=== PATIENT | male | born 1960 | race Caucasian/White ===

== ENCOUNTER → 2016-12-23 | Outpatient (CLI) | payer OTHER ==
[~2016-12-23] MED LIST: ATOR-24 PO; HYDR-5688 PO; MELO15TA4 PO; METO25TA56 PO; NAPR500T3; ULT/50 PO
--- NOTE | 2016-12-23 10:57 | DIAGNOSTIC IMAGING REPORT ---
MRI LEFT KNEE NO CONTRAST CLINICAL HISTORY: Left knee pain status post trauma. COMPARISON STUDY: Conventional radiographic study dated 09/22/2013 FINDINGS: Imaging was performed in sagittal, coronal, and axial planes. There are no areas of marrow edema to indicate occult fracture or bone bruise. There is a minimal joint effusion. The quadriceps and patellar tendons appear intact. Anterior and posterior cruciate ligaments appear intact. The medial and lateral collateral ligaments appear intact. The patellar retinacular structures appear intact. No tears a lateral meniscus are visualized. There is a complex primarily horizontal tear involving the posterior horn the medial meniscus. IMPRESSION: Complex tear involving the posterior horn of the medial meniscus. Electronically signed by: Larry Foote M.D. 12/23/2016 10:56 AM Dictated Date/Time: 12/23/2016 10:51 AM
== END | disposition home or self-care (01) ==
LOC: C.MRIBC 10:00
PROVIDERS: ATTEND Orthopaedic Surgery
DX: S83.242A Other tear of medial meniscus, current injury, left knee, initial encounter (principal); X58.XXXA Exposure to other specified factors, initial encounter

== ENCOUNTER → 2016-12-27 | Outpatient (CLI) | payer OTHER ==
[2016-12-27 13:07] LABS: BASO % 0.2 %; BASO ABS # 0.01 K/uL (0-0.2); COMPLETE YES; EOS % 5.3 %; HEMATOCRIT 48.2 % (42-52); IG% 0.2 %; LYMPH % 41.5 %; LYMPH ABS # 2.36 K/uL (1.2-3.4); MEAN CELL VOLUME 86.7 fL (80-100); MEAN CORPUSCULAR HEMOGLOBIN 29.5 pg (25-34); MEAN PLATELET VOLUME 11.1 fL (7.4-10.4); MONO % 5.6 %; NEUT % 47.2 %; PLATELET COUNT 212 K/uL (130-400); RED BLOOD COUNT 5.56 M/uL (4.7-6.1); WHITE BLOOD COUNT 5.69 K/uL (4.8-10.8)
[2016-12-27 13:40] LABS: POTASSIUM 4.5 mmol/L (3.5-5.1)
== END | disposition home or self-care (01) ==
LOC: C.LAB 11:53
DX: Z01.810 Encounter for preprocedural cardiovascular examination (principal); Z01.812 Encounter for preprocedural laboratory examination; S83.242A Other tear of medial meniscus, current injury, left knee, initial encounter; X58.XXXA Exposure to other specified factors, initial encounter

== ENCOUNTER → 2016-12-31 | Day surgery (SDC) | payer OTHER ==
[2016-12-27 11:43] VITALS: Ht 177.8 cm; Wt 95.5 kg
[~2016-12-31] VITALS: Ht 177.8 cm; Wt 95.5 kg
[~2016-12-31] MED LIST changes: +ATROPINE SULFATE 0.1 MG/ML 5ML SYR IV PRN; +BUPIVACAINE 0.5 % 5 MG/1 ML MPF 30ML VIAL ONE; +CEFAZOLIN 2000 MG/60 ML D5W IV SCH; +CEFAZOLIN IV 2,000 MG/60 ML D5W IV ONE; +DEXAMETHASONE SOD INJ 4 MG/ML VIAL ONE; +EpHEDrine SULFATE INJ 50 MG/ML AMP IV PRN; +EpINEphrine INJ 1MG/ML AMP 1 MG/ML AMP ONE; +FENTANYL CITRATE INJ 50 MCG/1 ML 2 ML VIAL IV PRN; +FENTANYL CITRATE INJ 50 MCG/1 ML 2 ML VIAL ONE; +FLUMAZENIL 0.1 MG/1 ML 10 ML VIAL IV PRN; +HYDROmorphone INJ 2 MG/ML SYR/VIAL IV PRN; +KETOROLAC TROMETHAMINE 30 MG/ML VIAL ONE; +LABETALOL HCL IV 5 MG/ML 20ML IV PRN; +LACTATED RINGER'S 1000ML 1,000 ML IV SCH; +LIDOCAINE HCL 2% 2 ML VIAL (20MG/ML) ONE; +MEPERIDINE HCL 25 MG/ML CARP IV PRN; +MIDAZOLAM HCL 1 MG/ML 2ML VIAL ONE; +NALOXONE HCL 0.4 MG/1 ML VIAL/CARP IV PRN; -NAPR500T3; +ONDANSETRON INJ 2 MG/ML 2 ML VIAL IV PRN; +ONDANSETRON INJ 2 MG/ML 2 ML VIAL ONE; +PHENYLEPHRINE 100MCG/ML 5ML SYR IV PRN; +PROPOFOL IV EMULSION 10 MG/ML 20 ML VIAL IV ONE; +ROPIVACAINE 0.5% 5 MG/ML 30 ML VIAL ONE; +SODIUM CHLORIDE 0.9% 1000ML 1,000 ML IV SCH; +TRAMADOL HCL 50 MG TAB ONE; +TRAMADOL HCL 50 MG TAB PO PRN
--- NOTE | 2016-12-31 10:21 | History & Physical Bridge - SC ---
H&P Re-Evaluation Bridge Note: I have examined the patient, reviewed the History & Physical and in the interval since the performance of the History & Physical I have noted the following changes of clinical significance: No changes noted
--- NOTE | 2016-12-31 12:12 | [facility] Post Operative Brief Note ---
Immediate Operative Summary Operative Date Dec 31, 2016. Pre-Operative Diagnosis Left knee positive Juliet, medial joint line pain Post-Operative Diagnosis Same as pre-op Procedure(s) Performed Left Knee Arthroscopy, Partial Medial Meniscectomy Surgeon Dr. Tena Link Assembler Surgeon(s) Benji BENITO Estimated Blood Loss ZERO Findings ABOVE Specimens None Anesthesia LMA Complication(s) None Disposition Recovery Room / PACU
--- NOTE | 2016-12-31 12:22 | Discharge Instructions-SurgCtr ---
Discharge Instructions Date of Service Dec 31, 2016. Visit Reason for Visit: Left Knee Medial Meniscus Tear Discharge Discharge Diagnosis / Problem: SAME ABOVE Discharge Goals Goal(s): Decrease discomfort, Improve function Activity Recommendations Activity Limitations: as noted below Lifting Limitations: gradually increase as tolerated Exercise/Sports Limitations: gradually increase as tolerated Shower/Bathe: tomorrow Driving or Machine Use: resume 1 day after discharge Anesthesia . Post Anesthesia Instructions: If you have had General Anesthesia or IV Sedation: * Do not drive today. * Resume driving when surgeon permits. * Do not make important decisions or sign legal documents today. * Call surgeon for: 1. Temperature elevations greater than 101 degrees F. 2. Uncontrollable pain. 3. Excessive bleeding. 4. Persistent nausea and vomiting. 5. Medication intolerance (nausea, vomiting or rash). * For nausea and vomiting use only clear liquids such as: tea, soda, bouillon until nausea subsides, then gradually increase diet as tolerated. * If you have any concerns or questions, call your surgeon's office. If physician is unavailable and it is an emergency, call 911 or go to the nearest emergency room. . Instructions / Follow-Up Instructions / Follow-Up MEDICATIONS: * Resume previous medications unless instructed otherwise by your surgeon. * Always take pain medication on a full stomach or with food to avoid upset stomach. * Do not drink alcohol or drive while taking narcotics. * Ibuprofen or Tylenol may be taken if narcotic not needed. SPECIAL CARE INSTRUCTIONS: __ None _X_ Keep extremity elevated and iced x 48 hours; apply ice 20-30 minutes 8-10 times/day. May remove at night. _X_ Crutches _X_ May discard when able __ Brace/Post-op shoe __ 24 hrs/day __ Remove at night _X_ Dressing __ Maintain until seen in office, may shower with plastic over site _X_ Remove dressings in 24-48 hours and then may shower _X_ Cover incisions with band-aids after showering __ Do not remove steri-strips Call physician if chills or temperature rises above 102 degrees or pain unrelieved by prescribed pain medications. Office [phone] Diet Recommendations Home Diet: no limitations Fluid Restriction: None Procedures Procedures Performed: Left Knee Arthroscopy, Partial Medial Meniscectomy Pending Studies Studies pending at discharge: no Work Instructions Return To Work: after follow-up Medical Emergencies . Who to Call and When: Medical Emergencies: If at any time you feel your situation is an emergency, please call 911 immediately. . Non-Emergent Contact Non-Emergency issues call your: Primary Care Provider Call Non-Emergent contact if: you have a fever, temperature is above 101.5 . . "Provider Documentation" section prepared by Henrik Aaron. .
--- NOTE | 2016-12-31 12:41 | Anesthesia Progress Nt - [facility] ---
Anesthesia Post Op Note Date & Time Dec 31, 2016 at 12:41 Vital Signs Pain Intensity: 0 Vital Signs Past 12 Hours Date Time Temp Pulse Resp B/P (MAP) Pulse Ox O2 Delivery O2 Flow Rate FiO2 12/31/16 12:25 71 11 93 12/31/16 12:25 71 11 12/31/16 12:22 36.2 75 12 139/100 96 Mask 12/31/16 12:22 139/100 12/31/16 10:03 36.6 63 18 156/93 (114) 96 Room Air Notes Mental Status: alert / awake / arousable, participated in evaluation Pt Amnestic to Procedure: Yes Nausea / Vomiting: adequately controlled Pain: adequately controlled Airway Patency, RR, SpO2: stable & adequate BP & HR: stable & adequate Hydration State: stable & adequate Anesthetic Complications: no major complications apparent
[2016-12-31 13:13] VITALS: TEMP 36.5
[2016-12-31 13:50] VITALS: BP 127/83; PULSE 55; O2SAT 97
== END | disposition home or self-care (01) ==
LOC: X.SURG 09:50
PROVIDERS: ATTEND Orthopaedic Surgery
DX: M23.222 Derangement of posterior horn of medial meniscus due to old tear or injury, left knee (principal); I10 Essential (primary) hypertension

== ENCOUNTER → 2017-05-21 | Outpatient (CLI) | payer OTHER ==
[~2017-05-21] MED LIST changes: -ATROPINE SULFATE 0.1 MG/ML 5ML SYR IV PRN; -BUPIVACAINE 0.5 % 5 MG/1 ML MPF 30ML VIAL ONE; -CEFAZOLIN 2000 MG/60 ML D5W IV SCH; -CEFAZOLIN IV 2,000 MG/60 ML D5W IV ONE; -DEXAMETHASONE SOD INJ 4 MG/ML VIAL ONE; -EpHEDrine SULFATE INJ 50 MG/ML AMP IV PRN; -EpINEphrine INJ 1MG/ML AMP 1 MG/ML AMP ONE; -FENTANYL CITRATE INJ 50 MCG/1 ML 2 ML VIAL IV PRN; -FENTANYL CITRATE INJ 50 MCG/1 ML 2 ML VIAL ONE; -FLUMAZENIL 0.1 MG/1 ML 10 ML VIAL IV PRN; -HYDROmorphone INJ 2 MG/ML SYR/VIAL IV PRN; -KETOROLAC TROMETHAMINE 30 MG/ML VIAL ONE; -LABETALOL HCL IV 5 MG/ML 20ML IV PRN; -LACTATED RINGER'S 1000ML 1,000 ML IV SCH; -LIDOCAINE HCL 2% 2 ML VIAL (20MG/ML) ONE; -MEPERIDINE HCL 25 MG/ML CARP IV PRN; -MIDAZOLAM HCL 1 MG/ML 2ML VIAL ONE; -NALOXONE HCL 0.4 MG/1 ML VIAL/CARP IV PRN; -ONDANSETRON INJ 2 MG/ML 2 ML VIAL IV PRN; -ONDANSETRON INJ 2 MG/ML 2 ML VIAL ONE; -PHENYLEPHRINE 100MCG/ML 5ML SYR IV PRN; -PROPOFOL IV EMULSION 10 MG/ML 20 ML VIAL IV ONE; -ROPIVACAINE 0.5% 5 MG/ML 30 ML VIAL ONE; -SODIUM CHLORIDE 0.9% 1000ML 1,000 ML IV SCH; -TRAMADOL HCL 50 MG TAB ONE; -TRAMADOL HCL 50 MG TAB PO PRN
[2017-05-21 13:53] LABS: ALT/SGPT 33 U/L (12-78); AST/SGOT 19 U/L (15-37); BLOOD UREA NITROGEN 15 mg/dl (7-18); BUN/CREATININE RATIO 13.2 (10-20); CALCIUM 8.4 mg/dl (8.5-10.1); CARBON DIOXIDE 29 mmol/L (21-32); CHLORIDE 105 mmol/L (98-107); GLUCOSE 107 mg/dl (70-99); POTASSIUM 4.3 mmol/L (3.5-5.1); SODIUM 137 mmol/L (136-145)
[2017-05-21 13:54] LABS: ESTIMATED AVERAGE GLUCOSE 120 mg/dl; HA1C FLAG Normal (Normal)
[2017-05-21 13:57] LABS: CHOLESTEROL 162 mg/dl (0-200); CHOLESTEROL/HDL RATIO 3.6; HDL CHOLESTEROL 45 mg/dl; LDL CHOLESTEROL CALCULATED 95 mg/dl; TRIGLYCERIDES 111 mg/dl (0-150); VERY LOW DENSITY LIPOPROT CALC 22 mg/dl
== END | disposition home or self-care (01) ==
LOC: C.LABBC 11:01
DX: I10 Essential (primary) hypertension (principal); E78.5 Hyperlipidemia, unspecified; E29.1 Testicular hypofunction

== ENCOUNTER → 2018-01-27 | Outpatient (CLI) | payer OTHER ==
[~2018-01-27] MED LIST changes: -HYDR-5688 PO; +MELO-84 PO; -MELO15TA4 PO
[2018-01-27 13:49] LABS: HEMOGLOBIN A1C 5.7 % (4.5-5.6)
[2018-01-27 17:02] LABS: ALT/SGPT 32 U/L (12-78); AST/SGOT 19 U/L (15-37); BLOOD UREA NITROGEN 17 mg/dl (7-18); CALCIUM 8.8 mg/dl (8.5-10.1); CARBON DIOXIDE 29 mmol/L (21-32); CHOLESTEROL 179 mg/dl (0-200); CREATININE 1.15 mg/dl (0.60-1.40); GLUCOSE 110 mg/dl (70-99); LDL CHOLESTEROL CALCULATED 114 mg/dl; POTASSIUM 4.4 mmol/L (3.5-5.1); SODIUM 139 mmol/L (136-145)
== END | disposition home or self-care (01) ==
LOC: C.LABBC 12:08
DX: E87.5 Hyperkalemia (principal); I10 Essential (primary) hypertension; E83.52 Hypercalcemia

== ENCOUNTER 2023-10-23 14:50 | Inpatient (IN) ==
[2023-10-23 16:18] LABS: Basophils # (auto) 0.01 K/uL (0.00-0.20); Basophils % (auto) 0.1 %; Hemoglobin 15.8 g/dl (14.0-18.0); Immature Granulocytes # (auto) 0.03 K/uL (0.01-0.20); Immature Granulocytes % (auto) 0.4 %; Lymphocytes # (auto) 0.78 K/uL (1.20-3.40); Lymphocytes % (auto) 10.5 %; Mean Corpuscular Hemoglobin 29.8 pg (25.0-34.0); Mean Corpuscular Hgb Conc 33.6 g/dL (32.0-36.0); Mean Corpuscular Volume 88.7 fL (80.0-100.0); Mean Platelet Volume 10.9 fL (9.4-12.4); Monocytes # (auto) 0.27 K/uL (0.11-0.59); Monocytes % (auto) 3.6 %; Neutrophils # (auto) 6.33 K/uL (1.40-6.50); Neutrophils % (auto) 85.4 %; Platelet Count 202 K/uL (130-400); RDW Coefficient of Variation 13.3 % (11.5-14.5); White Blood Count 7.42 K/ul (4.8-10.8)
[2023-10-23 16:43] LABS: Alanine Aminotransferase 28 U/L (7-52); Albumin Globulin Ratio 1.7 (0.9-2); Albumin Level 4.7 gm/dl (3.4-5.0); Alkaline Phosphatase 50 U/L (34-104); Anion Gap 5 (3-11); Aspartate Aminotransferase 18 U/L (13-39); BUN Creatinine Ratio 15.5 (10-20); Bilirubin,Total 1.1 mg/dl (0.2-1.0); Blood Urea Nitrogen 16 mg/dl (6-23); Calcium 9.4 mg/dl (8.6-10.3); Carbon Dioxide 29 mmol/L (21-32); Chloride 105 mmol/L (98-107); Est GFR (African American) 87.3 ml/min; Est GFR (Non-African American) 75.3 ml/min; Globulin 2.7 gm/dl (2.5-4.0); Glucose 141 mg/dl (70-99(Fasting)); Potassium 4.6 mmol/L (3.5-5.1); Sodium 139 mmol/L (136-145); Total Protein 7.4 gm/dl (6.0-8.3)
[2023-10-23 16:55] LABS: Influenza A virus by PCR Negative (Neg); Influenza B virus by PCR Negative (Neg); RSV by PCR Negative (Neg); SARS CoV2 RNA(COVID-19) Ceph NEGATIVE (Negative)
--- NOTE | 2023-10-23 18:17 | Emergency Department Note ---
History of Present Illness General Chief complaint: Illness Stated complaint: PAIN, DIZZINESS, VOMIT 24 HRS, LETHAGIC, BALANCE Time Seen by Provider: 10/23/23 17:56 Source: patient, family ( who is at the bedside), RN notes reviewed and old records reviewed (03/20/22-[facility] outpatient note) Mode of arrival: ambulatory Limitations: no limitations History of Present Illness This patient is a 64-year-old male who comes in after feeling dizzy. Yesterday he woke up to have ringing in his ear but it went away throughout the day he did some strenuous work throughout the day and went home he had a couple cocktails like he typically does he drank some yogurt around 9:00 in the evening and then woke up at between 130 and 2 and was nauseated dizzy and vomiting. No diarrhea. No blood or melena. He feels like his head is spinning. He says he feels well and less he moves and then he feels very dizzy his balance is off when he gets up. No headache minimal abdominal discomfort no chest pain or shortness of breath no difficulty speaking or swallowing .no focal numbness or weakness . no bloody or coffeeground emesis. No history of similar. Home Medications Medication Instructions Recorded Confirmed Type hydrocortisone 2.5 % topical cream 1 applic MA BID PRN Hemorrhoids 09/09/22 10/23/23 History with perineal applicator (Procto-Med ) tadalafil 5 mg tablet 5 mg PO DIRECTED PRN Sexual 09/09/22 10/23/23 History Activity atorvastatin 40 mg tablet 40 mg PO DAILY 10/23/23 10/23/23 History diclofenac sodium 75 mg 75 mg PO BID 10/23/23 10/23/23 History tablet,delayed release metoprolol succinate 25 mg 25 mg PO DAILY 10/23/23 10/23/23 History tablet,extended release 24 hr Allergies Allergy/AdvReac Type Severity Reaction Status Date / Time pollen extracts Allergy Intermediate CONGESTION Verified 10/23/23 19:40 Penicillins Allergy Unknown UNKNOWN Verified 10/23/23 19:40 WITH INJECTION A CHILD Past Med/Surg History Medical History (Updated 10/24/23 @ 00:51 by Edilberto Duarte MD) Hemorrhoids CURRENTLY-DUE TO CONSTIPATION Hyperlipidemia Hypertension Surgical History History of arthroscopy R/L KNEES History of colonoscopy Family History Aunt Family history of diabetes mellitus Social History Smoking Status: Unknown if ever smoked Second Hand Exposure: No; Do You Dip or Chew Tobacco: No; Hx Alcohol Use: Yes Alcohol type: hard liquor Hx Substance Use: No Preferred Language: Kazakh Communication Ability: Effective Sewer Line Photo Inspector Required: No Beliefs That Will Affect Care: None Current Living Situation: Spouse Other Information That Helps Us Care for You: No Feels Safe at Home: Yes Safety Concerns: Feels Safe At This Time Assistive Devices: Glasses Assistive Devices Comment: reading glasses Review of Systems A total of 10 systems reviewed and were otherwise negative Physical Exam Vital Signs Vital Signs - 24 hr 10/23/23 14:54 10/23/23 17:11 10/23/23 17:15 Temperature 36.4 C L Temperature Source Temporal Artery Scan Pulse Rate 67 94 H 75 Pulse Rate from SpO2 Sensor 90 Respiratory Rate 18 19 Respiratory Effort / Characteristics Non-Labored Spontaneous Respiratory Depth Normal Respiratory Pattern Regular Blood Pressure 174/91 H Blood Pressure Mean 118 Pulse Oximetry 94 95 Sepsis Recent Fever Within 48 Hours No Sepsis New/Unexplained Change in Mental Status N/A Sepsis Action Taken by Nursing No Action Required 10/23/23 17:20 10/23/23 17:30 10/23/23 17:30 Temperature Temperature Source Pulse Rate 70 68 Pulse Rate from SpO2 Sensor 69 68 Respiratory Rate 13 15 Respiratory Effort / Characteristics Respiratory Depth Respiratory Pattern Blood Pressure 142/81 H Blood Pressure Mean 111 Pulse Oximetry 94 96 Sepsis Recent Fever Within 48 Hours Sepsis New/Unexplained Change in Mental Status Sepsis Action Taken by Nursing 10/23/23 17:40 10/23/23 19:00 10/23/23 19:02 Temperature Temperature Source Pulse Rate 66 78 80 Pulse Rate from SpO2 Sensor 66 80 Respiratory Rate 17 16 Respiratory Effort / Characteristics Respiratory Depth Respiratory Pattern Blood Pressure 156/95 H 149/87 H Blood Pressure Mean 113 107 Pulse Oximetry 96 95 96 Sepsis Recent Fever Within 48 Hours Sepsis New/Unexplained Change in Mental Status Sepsis Action Taken by Nursing 10/23/23 19:50 10/23/23 20:00 10/23/23 20:29 Temperature Temperature Source Pulse Rate 72 79 76 Pulse Rate from SpO2 Sensor 71 79 78 Respiratory Rate 13 17 16 Respiratory Effort / Characteristics Respiratory Depth Respiratory Pattern Blood Pressure Blood Pressure Mean Pulse Oximetry 92 96 94 Sepsis Recent Fever Within 48 Hours Sepsis New/Unexplained Change in Mental Status Sepsis Action Taken by Nursing 10/23/23 20:30 Temperature Temperature Source Pulse Rate Pulse Rate from SpO2 Sensor Respiratory Rate Respiratory Effort / Characteristics Respiratory Depth Respiratory Pattern Blood Pressure 148/73 H Blood Pressure Mean 86 Pulse Oximetry Sepsis Recent Fever Within 48 Hours Sepsis New/Unexplained Change in Mental Status Sepsis Action Taken by Nursing General: Well developed well nourished [id number] middle-age male who appears in no acute distress, breathing comfortably on room air. Normal speech HEENT: Normal cephalic atraumatic. Pupils are equal round and reactive to light. Extraocular movements are intact. Oropharynx is pink with moist mucous membranes. No swelling of the mouth lips or tongue. Normal tympanic membranes bilaterally. Neck: Supple with a midline trachea. No meningeal signs or stiffness, no JVD or bruits. No Stridor. Chest: Clear to auscultation bilaterally. No wheezes or rhonchi. No increased work of breathing. Heart: Regular rate and rhythm without murmurs or gallops. Abdomen: Soft nontender, nondistended without rebound guarding or rigidity. Extremities: No cyanosis clubbing or edema. No calf tenderness or assymetry Spine/Back. Non tender to palpation. No CVA tenderness Skin: Good turgor without rashes. Neurologic exam: Cranial nerves two through 12 are intact. Motor and sensation are intact and symmetrical throughout. No tremor. Finger-nose intact. Normal [id number]. Course Administered Medications Lactated Ringer's (Lr) 1,000 mls @ 80 mls/hr IV .[id number] IBIS Stop: 10/24/23 10:29 Last Admin: 10/23/23 22:48 Dose: 80 mls/hr Documented By: AAW Meclizine HCl (Meclizine Hcl 25 Mg Tab) 25 mg PO Q6H PRN PRN Reason: Dizziness or Vertigo Stop: 11/22/23 23:24 Last Admin: 10/23/23 23:59 Dose: 25 mg Documented By: AMM Ondansetron HCl (Ondansetron Inj 2 Mg/Ml 2 Ml Vial) 4 mg IV Q6H PRN PRN Reason: Nausea Stop: 11/22/23 23:24 Last Admin: 10/23/23 23:59 Dose: 4 mg Documented By: JENNIFER Discontinued Medications Sodium Chloride (Nss) 1,000 mls @ 999 mls/hr IV .Q1H1M ONE Stop: 10/23/23 19:08 Last Infusion: 10/23/23 19:27 Dose: Infused Documented By: Admin: 10/23/23 18:26 Dose: 999 mls/hr Documented By: GABBY Sodium Chloride (Nss) 1,000 mls @ 999 mls/hr IV .Q1H1M ONE Stop: 10/23/23 20:19 Last Infusion: 10/23/23 20:28 Dose: Infused Documented By: Admin: 10/23/23 19:27 Dose: 999 mls/hr Documented By: PAM Meclizine HCl (Meclizine Hcl 25 Mg Tab) 25 mg PO NOW STA Stop: 10/23/23 18:09 Last Admin: 10/23/23 18:25 Dose: 25 mg Documented By: GABBY Ondansetron HCl (Ondansetron Inj 2 Mg/Ml 2 Ml Vial) 4 mg IV NOW STA Stop: 10/23/23 18:09 Last Admin: 10/23/23 18:26 Dose: 4 mg Documented By: GABBY Medical Decision Making Differential Diagnosis Vertigo, Mnire's disease, tinnitus, cardiac disease, arrhythmia, dehydration, electrolyte or metabolic abnormality, neurologic disease, infection, anemia Medical Records Attestation: I reviewed the patient's medical records. Home Medications Current Medication List: was personally reviewed by me Laboratory Data Attestation: I reviewed the patient's lab results. 10/23/23 15:53 10/23/23 15:53 Lab Results 10/23/23 10/23/23 Range/Units 15:53 15:56 WBC 7.42 (4.8-10.8) K/ul RBC 5.30 (4.70-6.10) M/uL Hgb 15.8 (14.0-18.0) g/dl Hct 47.0 (42.0-52.0) % MCV 88.7 (80.0-100.0) fL MCH 29.8 (25.0-34.0) pg MCHC 33.6 (32.0-36.0) g/dL RDW Std Deviation 43.0 (36.4-46.3) fL RDW Coeff of Dangelo 13.3 (11.5-14.5) % Plt Count 202 (130-400) K/uL MPV 10.9 (9.4-12.4) fL Immature Gran % (Auto) 0.4 % Neut % (Auto) 85.4 % Lymph % (Auto) 10.5 % Faulk % (Auto) 3.6 % Eos % (Auto) 0.0 % Baso % (Auto) 0.1 % Neut # (Auto) 6.33 (1.40-6.50) K/uL Lymph # (Auto) 0.78 L (1.20-3.40) K/uL Faulk # (Auto) 0.27 (0.11-0.59) K/uL Eos # (Auto) 0.00 (0.00-0.50) K/uL Baso # (Auto) 0.01 (0.00-0.20) K/uL Immature Gran # (Auto) 0.03 (0.01-0.20) K/uL Sodium 139 (136-145) mmol/L Potassium 4.6 (3.5-5.1) mmol/L Chloride 105 (98-107) mmol/L Carbon Dioxide 29 (21-32) mmol/L Anion Gap 5 (3-11) BUN 16 (6-23) mg/dl Creatinine 1.03 (0.6-1.4) mg/dl Est Cr Clr Drug Dosing Not Reportable Est GFR ( Amer) 87.3 ml/min Est GFR (Non-Af Amer) 75.3 ml/min BUN/Creatinine Ratio 15.5 (10-20) Glucose 141 H (70-99(Fasting)) mg/dl Calcium 9.4 (8.6-10.3) mg/dl Total Bilirubin 1.1 H (0.2-1.0) mg/dl AST 18 (13-39) U/L ALT 28 (7-52) U/L Alkaline Phosphatase 50 (34-104) U/L Troponin I High Sens 4.1 (0-20) pg/ml Total Protein 7.4 (6.0-8.3) gm/dl Albumin 4.7 (3.4-5.0) gm/dl Globulin 2.7 (2.5-4.0) gm/dl Albumin/Globulin Ratio 1.7 (0.9-2) Ethyl Alcohol mg/dL < 10.0 (<10.0) mg/dl SARS-CoV-2 (PCR) NEGATIVE (Negative) Influenza Type A (PCR) Negative (Neg) Influenza Type B (PCR) Negative (Neg) RSV (RT-PCR) Negative (Neg) Imaging Data Attestation: I personally reviewed and interpreted this imaging study as follows: My Impression: CAT scan of the headno hemorrhage or mass effect seen Radiologist's Impression: Head CT 10/23/23 18:10 Exam(s): CT HEAD Without Contrast EXAM: CT Head Without Intravenous Contrast CLINICAL HISTORY: Reason for exam: dizziness. TECHNIQUE: Axial computed tomography images of the head/brain without intravenous contrast. CTDI is 36.05 mGy and DLP is 625.8 mGy-cm. Automated exposure control was utilized for the study. A dose lowering technique was utilized adhering to the principles of ALARA. COMPARISON: No relevant prior studies available. FINDINGS: Brain: Unremarkable. No hemorrhage. No significant white matter disease. No edema. Garcia-white matter differentiation maintained. Ventricles: Unremarkable. No hydrocephalus. Bones/joints: Unremarkable. No acute fracture. Soft tissues: Unremarkable. Sinuses: Unremarkable as visualized. No acute sinusitis. Mastoid air cells: Unremarkable as visualized. No mastoid effusion. IMPRESSION: No acute intracranial process. Electronically signed by: Raudel Vazquez M.D. 10/23/23 19:49 PM Brain MRI 10/23/23 21:12 Exam(s): MRI HEAD W/WO Contrast IV Amt: 9.5ml gadavist EXAM: MR Head Without and With Intravenous Contrast CLINICAL HISTORY: Reason for exam: vertigo. TECHNIQUE: Magnetic resonance images of the head/brain without and with intravenous contrast in multiple planes. CONTRAST: Patient received 9.5ml gadavist of IV contrast COMPARISON: CT head 10/23/23 FINDINGS: Brain: No diffusion restriction to suggest acute cerebral ischemia. No acute intracranial hemorrhage. No mass-effect or midline shift. Proximal intracranial flow voids appear normal. No intracranial mass or abnormal enhancement. Single focus of FLAIR signal hyperintensity in the deep cerebral white matter of the left cerebral hemisphere, nonspecific, but most likely representing mild chronic small vessel ischemic disease. Parenchymal volume is normal for age. Ventricles: Unremarkable. No ventriculomegaly. Bones/joints: Unremarkable. No acute fracture. Sinuses: Small mucous retention cysts in the left maxillary sinus and right sphenoid sinus. Paranasal sinuses otherwise clear. No acute sinusitis. Mastoid air cells: Unremarkable as visualized. No mastoid effusion. Orbits: Unremarkable as visualized. IMPRESSION: No acute findings in the head/brain. Electronically signed by: Raudel Vazquez M.D. 10/23/23 22:50 PM ECG Data Attestation: I personally reviewed and interpreted this ECG as follows: Indication: + nausea, + vomiting and + other (Dizziness) Rate (beats per minute): 67 Rhythm: + normal sinus ECG Intervals/blocks: + Normal QRS, + Normal QT and + Normal MA ECG [place]: + Normal ECG ST segments: + Normal ST segments ECG Findings: no PACs or no PVCs Comparison ECG Date: from (12/27/2016) Change: no significant change MDM Narrative This patient is a six 4-year-old male who comes in after feeling dizzy. He has a normal neurologic exam he has normal finger to toes normal [id number] he has no tremor. He has no headache. He is afebrile. Blood work was obtained. He is no white count or fevers suggest infection no significant anemia. Blood sugar is mildly elevated at 140 but no other electrolyte or metabolic abnormalities. EKG does not suggest acute coronary syndrome or arrhythmia. I did order 1 L IV normal saline bolus as well as Zofran 4 mg IV and meclizine 25 mg p.o. as well as add a troponin and a CAT scan of his head. Troponin was normal and his symptoms would be atypical for cardiac disease. I did give him a second 1 L normal saline bolus. His CAT scan of his head is unremarkable. He says he does feel better however when he tried to get him up he was still very dizzy and unable to safely ambulate in light of his persistent vertiginous symptoms ,I did order MRI of the brain with and without. I also consulted Dr. Ontiveros and discussed the case with him for admission/observation as I do not think he can safely go home and will need further workup. In the meantime, his brain MRI did come back as negative. He will be admitted/observed for further inpatient treatment and evaluation. Continuous cardiac monitoring: Orders placed in EMR for continuous development coach call upon my evaluation patient will be normal sinus rhythm rate 65 Impression & Plan Dizziness, Lab test negative for COVID-19 virus, Acute dehydration, Nausea & vomiting, Ambulatory dysfunction Discharge Plan Visit Data Chief Complaint: Illness Stated Complaint: PAIN, DIZZINESS, VOMIT 24 HRS, LETHAGIC, BALANCE ED Provider: Edilberto Duarte Discharge Problem: Dizziness, Lab test negative for COVID-19 virus, Acute dehydration, Nausea & vomiting, Ambulatory dysfunction Patient Disposition: Admitted As Inpatient Discharge Instructions Interventions: ED Discharge Assessment Last Done: 10/23/23 22:58 Discharge Problem: Nausea & vomiting Qualifiers: Vomiting type: unspecified Qualified Code(s): R11.2 - Nausea with vomiting, unspecified
[2023-10-23] MEDS: MECLIZINE HCL 25 MG TAB PO STA (18:25)
[2023-10-23] MEDS: SODIUM CHLORIDE 0.9% 1,000 ML IV ONE ×2 (18:26→19:27)
[2023-10-23] MEDS: ONDANSETRON INJ 2 MG/ML 2 ML VIAL IV STA (18:26)
[2023-10-23 18:40] LABS: Troponin I High Sensitivity 4.1 pg/ml (0-20)
--- NOTE | 2023-10-23 19:50 | CT Scan Report ---
Exam(s): CT HEAD Without Contrast EXAM: CT Head Without Intravenous Contrast CLINICAL HISTORY: Reason for exam: dizziness. TECHNIQUE: Axial computed tomography images of the head/brain without intravenous contrast. CTDI is 36.05 mGy and DLP is 625.8 mGy-cm. Automated exposure control was utilized for the study. A dose lowering technique was utilized adhering to the principles of ALARA. COMPARISON: No relevant prior studies available. FINDINGS: Brain: Unremarkable. No hemorrhage. No significant white matter disease. No edema. Garcia-white matter differentiation maintained. Ventricles: Unremarkable. No hydrocephalus. Bones/joints: Unremarkable. No acute fracture. Soft tissues: Unremarkable. Sinuses: Unremarkable as visualized. No acute sinusitis. Mastoid air cells: Unremarkable as visualized. No mastoid effusion. IMPRESSION: No acute intracranial process. Electronically signed by: Raudel Vazquez M.D. 10/23/23 19:49 PM
--- NOTE | 2023-10-23 21:59 | History & Physical Report ---
Date of Service October 23, 2023 Assessment & Plan (1) Dizziness: (2) Intractable nausea and vomiting: (3) Enlarged prostate with lower urinary tract symptoms (LUTS): (4) Hypertension: Plan Dizziness/ambulatory dysfunction- Associated with intractable nausea and vomiting CT scan of the head without contrast is negative MRI of brain with and without contrast is negative Status post 2 L normal saline bolus in the ED Lactated Ringer's at 80 mL/h x 1 L Zofran 4 mg IV every 6 hours as needed Meclizine 25 mg p.o. every 6 hours as needed Monitor on telemetry, no sign of arrhythmia while in the ED Hypertension- Continue metoprolol succinate and aspirin History of Present Illness Chief Complaint: The patient reports that he developed ear ringing 10/21 AM, that resolved after 2 hours. He then remained exhausted the rest of the day, and was able to eat chicken that evening, and then yogurt for bedtime. He reports he had a small drink of vodka that evening as well. He went to bed, and then around 1:30 AM the morning of 10/22 he woke up with nausea, vomiting and a spinning sensation. He says he he remained sitting upright for the rest of the morning to try to sleep. His symptoms have persisted throughout the day on 10/22, and had severe imbalance, and inability to ambulate properly during this time. Due to persistence of symptoms, he presents to the ED for assessment this evening. Primary Care Provider: Edilberto Buckner The patient is a 64-year-old male with past medical history including hematuria, BPH with LUTS, hyperlipidemia, hemorrhoids, hypertension, and hypogonadism. He presents to the emergency department symptoms as noted above. Workup in the emergency department included a CT scan of head without contrast which was negative. MRI of the brain with and without contrast was negative also. COVID/flu/RSV testing was negative. Patient was given normal saline 1 L IV boluses x 2, meclizine 25 mg p.o., Zofran 4 mg IV with mild improvement in symptoms. He was referred to hospital medicine for admission at this time Allergies Allergy/AdvReac Type Severity Reaction Status Date / Time pollen extracts Allergy Intermediate CONGESTION Verified 10/23/23 19:40 Penicillins Allergy Unknown UNKNOWN Verified 10/23/23 19:40 WITH INJECTION A CHILD Home Medications Medication Instructions Recorded Confirmed Type hydrocortisone 2.5 % topical cream 1 applic [place] BID PRN Hemorrhoids 09/09/22 10/23/23 History with perineal applicator (Procto-Med ) tadalafil 5 mg tablet 5 mg PO DIRECTED PRN Sexual 09/09/22 10/23/23 History Activity atorvastatin 40 mg tablet 40 mg PO DAILY 10/23/23 10/23/23 History diclofenac sodium 75 mg 75 mg PO BID 10/23/23 10/23/23 History tablet,delayed release metoprolol succinate 25 mg 25 mg PO DAILY 10/23/23 10/23/23 History tablet,extended release 24 hr Past Med/Surg History Medical History (Updated 10/24/23 @ 00:17 by Feliciano You MD) Hemorrhoids CURRENTLY-DUE TO CONSTIPATION Hyperlipidemia Hypertension Surgical History History of arthroscopy R/L KNEES History of colonoscopy Family History Aunt Family history of diabetes mellitus Social History Smoking Status: Unknown if ever smoked Second Hand Exposure: No; Do You Dip or Chew Tobacco: No; Hx Alcohol Use: Yes Alcohol type: hard liquor Hx Substance Use: No Preferred Language: Nigerian Communication Ability: Effective Plastic Mixer Required: No Beliefs That Will Affect Care: None Current Living Situation: Spouse Feels Safe at Home: Yes Assistive Devices: Glasses Review of Systems Review of Systems: The patient denies chest pain, palpitations, shortness of breath, dyspnea on exertion, cough, lower extremity swelling, sore throat, fevers, chills, sweats, diarrhea, blood in urine or stool, dysuria, urinary frequency or urgency, lightheadedness, dizziness, headache, memory loss, loss of consciousness, rash, abnormal bruising or bleeding, focal weakness, numbness or tingling in arms or legs, generalized arthralgias or myalgias, back or neck pain, or night sweats. The review of systems is otherwise negative other than for that already noted above, and at least 10 systems have been reviewed. Physical Exam Physical Exam: The patient is awake, alert and oriented 3, well developed and well nourished, normocephalic and atraumatic, lying in bed and in no acute distress. HEENT--PERRL, EOMI, mucous membranes and oropharynx dry. Neck--supple. No JVD. No bruits. Thyroid normal, trachea midline, no adenopathy. Heart--normal S1 and S2. No murmurs, rubs or gallops. Lungs--clear bilaterally, no respiratory distress, no accessory muscle use. Abdomen--normal bowel sounds and soft. Nontender. Nondistended, no hernias or masses, no organomegaly. Extremities--no cyanosis or clubbing. No edema. Dermatologic--normal skin turgor, normal color, no abnormal lymph nodes, no rash. Neurologic--cranial nerves II through XII grossly intact. Rheumatologic--normal range of motion. Psychiatric--normal affect. Results & Data Results & Data Vital Signs (Past 12 Hours) Vital Signs Temp Pulse Resp BP Pulse Ox 10/23/23 20:30 148/73 H 10/23/23 20:29 76 16 94 10/23/23 20:00 79 17 96 10/23/23 19:50 72 13 92 10/23/23 19:02 80 149/87 H 96 10/23/23 19:00 78 16 156/95 H 95 10/23/23 17:40 66 17 96 10/23/23 17:30 142/81 H 10/23/23 17:30 68 15 96 10/23/23 17:20 70 13 94 10/23/23 17:15 75 10/23/23 17:11 94 H 19 95 10/23/23 14:54 36.4 C L 67 18 174/91 H 94 Laboratory Results Laboratory Results WBC 7.42 K/ul (4.8-10.8) 10/23/23 15:53 RBC 5.30 M/uL (4.70-6.10) 10/23/23 15:53 Hgb 15.8 g/dl (14.0-18.0) 10/23/23 15:53 Hct 47.0 % (42.0-52.0) 10/23/23 15:53 MCV 88.7 fL (80.0-100.0) 10/23/23 15:53 MCH 29.8 pg (25.0-34.0) 10/23/23 15:53 MCHC 33.6 g/dL (32.0-36.0) 10/23/23 15:53 RDW Std Deviation 43.0 fL (36.4-46.3) 10/23/23 15:53 RDW Coeff of Dangelo 13.3 % (11.5-14.5) 10/23/23 15:53 Plt Count 202 K/uL (130-400) 10/23/23 15:53 MPV 10.9 fL (9.4-12.4) 10/23/23 15:53 Immature Gran % (Auto) 0.4 % 10/23/23 15:53 Neut % (Auto) 85.4 % 10/23/23 15:53 Lymph % (Auto) 10.5 % 10/23/23 15:53 Dickson % (Auto) 3.6 % 10/23/23 15:53 Eos % (Auto) 0.0 % 10/23/23 15:53 Baso % (Auto) 0.1 % 10/23/23 15:53 Neut # (Auto) 6.33 K/uL (1.40-6.50) 10/23/23 15:53 Lymph # (Auto) 0.78 K/uL (1.20-3.40) L 10/23/23 15:53 Dickson # (Auto) 0.27 K/uL (0.11-0.59) 10/23/23 15:53 Eos # (Auto) 0.00 K/uL (0.00-0.50) 10/23/23 15:53 Baso # (Auto) 0.01 K/uL (0.00-0.20) 10/23/23 15:53 Immature Gran # (Auto) 0.03 K/uL (0.01-0.20) 10/23/23 15:53 Sodium 139 mmol/L (136-145) 10/23/23 15:53 Potassium 4.6 mmol/L (3.5-5.1) 10/23/23 15:53 Chloride 105 mmol/L (98-107) 10/23/23 15:53 Carbon Dioxide 29 mmol/L (21-32) 10/23/23 15:53 Anion Gap 5 (3-11) 10/23/23 15:53 BUN 16 mg/dl (6-23) 10/23/23 15:53 Creatinine 1.03 mg/dl (0.6-1.4) 10/23/23 15:53 Est Cr Clr Drug Dosing Not Reportable 10/23/23 15:53 Est GFR ( Amer) 87.3 ml/min 10/23/23 15:53 Est GFR (Non-Af Amer) 75.3 ml/min 10/23/23 15:53 BUN/Creatinine Ratio 15.5 (10-20) 10/23/23 15:53 Glucose 141 mg/dl (70-99(Fasting)) H 10/23/23 15:53 Calcium 9.4 mg/dl (8.6-10.3) 10/23/23 15:53 Total Bilirubin 1.1 mg/dl (0.2-1.0) H 10/23/23 15:53 AST 18 U/L (13-39) 10/23/23 15:53 ALT 28 U/L (7-52) 10/23/23 15:53 Alkaline Phosphatase 50 U/L (34-104) 10/23/23 15:53 Troponin I High Sens 4.1 pg/ml (0-20) 10/23/23 15:53 Total Protein 7.4 gm/dl (6.0-8.3) 10/23/23 15:53 Albumin 4.7 gm/dl (3.4-5.0) 10/23/23 15:53 Globulin 2.7 gm/dl (2.5-4.0) 10/23/23 15:53 Albumin/Globulin Ratio 1.7 (0.9-2) 10/23/23 15:53 Ethyl Alcohol mg/dL < 10.0 mg/dl (<10.0) 10/23/23 15:53 SARS-CoV-2 (PCR) NEGATIVE (Negative) 10/23/23 15:56 Influenza Type A (PCR) Negative (Neg) 10/23/23 15:56 Influenza Type B (PCR) Negative (Neg) 10/23/23 15:56 RSV (RT-PCR) Negative (Neg) 10/23/23 15:[address] 10/23/23 18:10 Exam(s): CT HEAD Without Contrast EXAM: CT Head Without Intravenous Contrast CLINICAL HISTORY: Reason for exam: dizziness. TECHNIQUE: Axial computed tomography images of the head/brain without intravenous contrast. CTDI is 36.05 mGy and DLP is 625.8 mGy-cm. Automated exposure control was utilized for the study. A dose lowering technique was utilized adhering to the principles of ALARA. COMPARISON: No relevant prior studies available. FINDINGS: Brain: Unremarkable. No hemorrhage. No significant white matter disease. No edema. Garcia-white matter differentiation maintained. Ventricles: Unremarkable. No hydrocephalus. Bones/joints: Unremarkable. No acute fracture. Soft tissues: Unremarkable. Sinuses: Unremarkable as visualized. No acute sinusitis. Mastoid air cells: Unremarkable as visualized. No mastoid effusion. IMPRESSION: No acute intracranial process. Electronically signed by: Raudel Vazquez M.D. 10/23/23 19:49 PM Brain MRI 10/23/23 21:12 Exam(s): MRI HEAD W/WO Contrast IV Amt: 9.5ml gadavist EXAM: MR Head Without and With Intravenous Contrast CLINICAL HISTORY: Reason for exam: vertigo. TECHNIQUE: Magnetic resonance images of the head/brain without and with intravenous contrast in multiple planes. CONTRAST: Patient received 9.5ml gadavist of IV contrast COMPARISON: CT head 10/23/23 FINDINGS: Brain: No diffusion restriction to suggest acute cerebral ischemia. No acute intracranial hemorrhage. No mass-effect or midline shift. Proximal intracranial flow voids appear normal. No intracranial mass or abnormal enhancement. Single focus of FLAIR signal hyperintensity in the deep cerebral white matter of the left cerebral hemisphere, nonspecific, but most likely representing mild chronic small vessel ischemic disease. Parenchymal volume is normal for age. Ventricles: Unremarkable. No ventriculomegaly. Bones/joints: Unremarkable. No acute fracture. Sinuses: Small mucous retention cysts in the left maxillary sinus and right sphenoid sinus. Paranasal sinuses otherwise clear. No acute sinusitis. Mastoid air cells: Unremarkable as visualized. No mastoid effusion. Orbits: Unremarkable as visualized. IMPRESSION: No acute findings in the head/brain. Electronically signed by: Raudel Vazquez M.D. 10/23/23 22:50 PM Code Status & VTE Plan Code Status Full code VTE Prophylaxis Plan VTE Prophylaxis will be ordered: Yes PG Care Time/CCT Total # of Minutes Spent Total Time Spent with Patient: Total time spent is greater than 50% in coordination of care (as documented) at patient's floor/unit and/or counseling patient: Coding Level of Care Code 86932 INT INP/OBS CARE MIN Diagnoses Dizziness R42 Intractable nausea and vomiting R11.2 Enlarged prostate with lower urinary tract symptoms (LUTS) N40.1 Hypertension I10
[2023-10-23] MEDS: LACTATED RINGER'S 1,000 ML IV SCH (22:48)
--- NOTE | 2023-10-23 22:51 | Magnetic Resonance Report ---
Exam(s): MRI HEAD W/WO Contrast IV Amt: 9.5ml gadavist EXAM: MR Head Without and With Intravenous Contrast CLINICAL HISTORY: Reason for exam: vertigo. TECHNIQUE: Magnetic resonance images of the head/brain without and with intravenous contrast in multiple planes. CONTRAST: Patient received 9.5ml gadavist of IV contrast COMPARISON: CT head 10/23/23 FINDINGS: Brain: No diffusion restriction to suggest acute cerebral ischemia. No acute intracranial hemorrhage. No mass-effect or midline shift. Proximal intracranial flow voids appear normal. No intracranial mass or abnormal enhancement. Single focus of FLAIR signal hyperintensity in the deep cerebral white matter of the left cerebral hemisphere, nonspecific, but most likely representing mild chronic small vessel ischemic disease. Parenchymal volume is normal for age. Ventricles: Unremarkable. No ventriculomegaly. Bones/joints: Unremarkable. No acute fracture. Sinuses: Small mucous retention cysts in the left maxillary sinus and right sphenoid sinus. Paranasal sinuses otherwise clear. No acute sinusitis. Mastoid air cells: Unremarkable as visualized. No mastoid effusion. Orbits: Unremarkable as visualized. IMPRESSION: No acute findings in the head/brain. Electronically signed by: Raudel Vazquez M.D. 10/23/23 22:50 PM
[2023-10-23] MEDS ORDERED: HYDROCORTISONE HC 2.5% CRM 30GM TUBE EXT PRN (23:25)
[2023-10-23] MEDS: ONDANSETRON INJ 2 MG/ML 2 ML VIAL IV PRN (23:59)
[2023-10-23] MEDS: MECLIZINE HCL 25 MG TAB PO PRN (23:59)
[2023-10-24 06:23] LABS: Basophils # (auto) 0.02 K/uL (0.00-0.20); Basophils % (auto) 0.2 %; Eosinophils # (auto) 0.02 K/uL (0.00-0.50); Eosinophils % (auto) 0.2 %; Hematocrit (blood only) 41.8 % (42.0-52.0); Hemoglobin 14.1 g/dl (14.0-18.0); Immature Granulocytes # (auto) 0.03 K/uL (0.01-0.20); Immature Granulocytes % (auto) 0.4 %; Lymphocytes # (auto) 1.97 K/uL (1.20-3.40); Lymphocytes % (auto) 24.3 %; Mean Corpuscular Hemoglobin 30.1 pg (25.0-34.0); Mean Corpuscular Hgb Conc 33.7 g/dL (32.0-36.0); Mean Corpuscular Volume 89.1 fL (80.0-100.0); Mean Platelet Volume 11.2 fL (9.4-12.4); Monocytes # (auto) 0.54 K/uL (0.11-0.59); Monocytes % (auto) 6.7 %; Neutrophils # (auto) 5.54 K/uL (1.40-6.50); Neutrophils % (auto) 68.2 %; Platelet Count 187 K/uL (130-400); RDW Coefficient of Variation 13.5 % (11.5-14.5); RDW Standard Deviation 43.9 fL (36.4-46.3); Red Blood Count 4.69 M/uL (4.70-6.10); White Blood Count 8.12 K/ul (4.8-10.8)
[2023-10-24 06:34] LABS: Albumin Globulin Ratio 1.8 (0.9-2); Albumin Level 3.7 gm/dl (3.4-5.0); BUN Creatinine Ratio 13.7 (10-20); Bilirubin,Total 0.9 mg/dl (0.2-1.0); Calcium 8.1 mg/dl (8.6-10.3); Creatinine Clr Calc Pharmacy 86.7 ml/min; Est GFR (African American) 88.4 ml/min; Est GFR (Non-African American) 76.2 ml/min; Globulin 2.1 gm/dl (2.5-4.0); Potassium 3.5 mmol/L (3.5-5.1); Total Protein 5.8 gm/dl (6.0-8.3)
[2023-10-24 06:38] LABS: Troponin I High Sensitivity 7.4 pg/ml (0-20)
[2023-10-24] MEDS: ATORVASTATIN 40 MG TAB PO SCH (09:19)
[2023-10-24] MEDS: METOPROLOL SUCC 25MG EXT REL TAB PO SCH (09:19)
[2023-10-24] MEDS: ASPIRIN 81 MG ECTAB PO SCH (09:19)
--- NOTE | 2023-10-24 12:55 | XCELERA ---
[id number]
--- NOTE | 2023-10-24 16:25 | Hospitalist Progress Note ---
Date of Service October 24, 2023 Assessment & Plan (1) Dizziness: (2) Intractable nausea and vomiting: (3) Enlarged prostate with lower urinary tract symptoms (LUTS): (4) Hypertension: Plan Benign positional vertigo/ambulatory dysfunction- Associated with intractable nausea and vomiting CT scan of the head without contrast is negative MRI of brain with and without contrast is negative Consulted physical therapy Zofran 4 mg IV every 6 hours as needed Meclizine 25 mg p.o. every 6 hours as needed Hypertension- Continue metoprolol succinate and aspirin Admission and Anticipated Discharge Date Admission Date: October 23, 2023 Subjective Patient says that he still is experiencing the spinning sensation. It is every time he changes position or moves his head. When he is laying still, no vertigo. He is still quite imbalanced when he walks. Review of Systems Review of Systems: All systems reviewed & are unremarkable except as noted in Subjective Physical Exam Physical Exam: General: Awake, conversant Heart: S1, S2/regular rate and rhythm, no murmur rubs or gallops Lungs: Clear to auscultation bilaterally. Normal effort Abdomen: Soft/nontender/nondistended. No hepatosplenomegaly Extremities: No clubbing/cyanosis. No edema Behavior: Appropriate, cooperative Results & Data Results & Data Vital Signs (Past 12 Hours) Vital Signs Temp Pulse Resp BP Pulse Ox O2 Del Method 10/24/23 16:13 36.8 C 64 19 130/78 95 Room Air 10/24/23 11:13 36.7 C 70 18 150/83 H 96 Room Air 10/24/23 09:23 86 155/65 H 10/24/23 07:42 37.1 C 80 19 162/84 H 93 Room Air Laboratory Results Abnormal lab results 10/23/23 10/24/23 Range/Units 15:53 05:26 RBC 4.69 L (4.70-6.10) M/uL Hct 41.8 L (42.0-52.0) % Chloride 109 H (98-107) mmol/L Glucose 141 H 107 H (70-99(Fasting)) mg/dl Calcium 8.1 L (8.6-10.3) mg/dl Total Bilirubin 1.1 H (0.2-1.0) mg/dl Total Protein 5.8 L D (6.0-8.3) gm/dl Globulin 2.1 L (2.5-4.0) gm/dl Diagnostic Findings Head CT 10/23/23 18:10 Exam(s): CT HEAD Without Contrast EXAM: CT Head Without Intravenous Contrast CLINICAL HISTORY: Reason for exam: dizziness. TECHNIQUE: Axial computed tomography images of the head/brain without intravenous contrast. CTDI is 36.05 mGy and DLP is 625.8 mGy-cm. Automated exposure control was utilized for the study. A dose lowering technique was utilized adhering to the principles of ALARA. COMPARISON: No relevant prior studies available. FINDINGS: Brain: Unremarkable. No hemorrhage. No significant white matter disease. No edema. Garcia-white matter differentiation maintained. Ventricles: Unremarkable. No hydrocephalus. Bones/joints: Unremarkable. No acute fracture. Soft tissues: Unremarkable. Sinuses: Unremarkable as visualized. No acute sinusitis. Mastoid air cells: Unremarkable as visualized. No mastoid effusion. IMPRESSION: No acute intracranial process. Electronically signed by: Raudel Vazquez M.D. 10/23/23 19:49 PM Brain MRI 10/23/23 21:12 Exam(s): MRI HEAD W/WO Contrast IV Amt: 9.5ml gadavist EXAM: MR Head Without and With Intravenous Contrast CLINICAL HISTORY: Reason for exam: vertigo. TECHNIQUE: Magnetic resonance images of the head/brain without and with intravenous contrast in multiple planes. CONTRAST: Patient received 9.5ml gadavist of IV contrast COMPARISON: CT head 10/23/23 FINDINGS: Brain: No diffusion restriction to suggest acute cerebral ischemia. No acute intracranial hemorrhage. No mass-effect or midline shift. Proximal intracranial flow voids appear normal. No intracranial mass or abnormal enhancement. Single focus of FLAIR signal hyperintensity in the deep cerebral white matter of the left cerebral hemisphere, nonspecific, but most likely representing mild chronic small vessel ischemic disease. Parenchymal volume is normal for age. Ventricles: Unremarkable. No ventriculomegaly. Bones/joints: Unremarkable. No acute fracture. Sinuses: Small mucous retention cysts in the left maxillary sinus and right sphenoid sinus. Paranasal sinuses otherwise clear. No acute sinusitis. Mastoid air cells: Unremarkable as visualized. No mastoid effusion. Orbits: Unremarkable as visualized. IMPRESSION: No acute findings in the head/brain. Electronically signed by: Raudel Vazquez M.D. 10/23/23 22:50 PM PG Care Time/CCT Total # of Minutes Spent Total Time Spent with Patient: Total time spent is greater than 50% in coordination of care (as documented) at patient's floor/unit and/or counseling patient: Coding Level of Care Code 34942 SUB INP/OBS CARE 2/35MIN Diagnoses Dizziness R42 Intractable nausea and vomiting R11.2 Enlarged prostate with lower urinary tract symptoms (LUTS) N40.1 Hypertension I10
[2023-10-25 05:16] LABS: Basophils # (auto) 0.01 K/uL (0.00-0.20); Basophils % (auto) 0.1 %; Eosinophils # (auto) 0.16 K/uL (0.00-0.50); Eosinophils % (auto) 2.4 %; Hematocrit (blood only) 42.1 % (42.0-52.0); Hemoglobin 14.2 g/dl (14.0-18.0); Immature Granulocytes # (auto) 0.01 K/uL (0.01-0.20); Immature Granulocytes % (auto) 0.1 %; Lymphocytes % (auto) 32.5 %; Mean Corpuscular Hgb Conc 33.7 g/dL (32.0-36.0); Mean Corpuscular Volume 88.8 fL (80.0-100.0); Monocytes # (auto) 0.46 K/uL (0.11-0.59); Monocytes % (auto) 6.8 %; Neutrophils # (auto) 3.93 K/uL (1.40-6.50); Neutrophils % (auto) 58.1 %; Platelet Count 176 K/uL (130-400); RDW Coefficient of Variation 13.1 % (11.5-14.5); RDW Standard Deviation 42.7 fL (36.4-46.3); Red Blood Count 4.74 M/uL (4.70-6.10); White Blood Count 6.77 K/ul (4.8-10.8)
[2023-10-25 05:30] LABS: Albumin Globulin Ratio 1.7 (0.9-2); Albumin Level 3.7 gm/dl (3.4-5.0); BUN Creatinine Ratio 11.6 (10-20); Bilirubin,Total 1.1 mg/dl (0.2-1.0); Calcium 8.2 mg/dl (8.6-10.3); Est GFR (African American) 78.9 ml/min; Est GFR (Non-African American) 68.1 ml/min; Globulin 2.2 gm/dl (2.5-4.0); Potassium 3.8 mmol/L (3.5-5.1); Total Protein 5.9 gm/dl (6.0-8.3)
[2023-10-25] MEDS: ACETAMINOPHEN 325 MG TAB PO PRN (08:10)
--- NOTE | 2023-10-25 11:05 | Discharge Summary ---
Date of Service October 25, 2023 Admission HPI Per Admitting Provider The patient is a 64-year-old male with past medical history including hematuria, BPH with LUTS, hyperlipidemia, hemorrhoids, hypertension, and hypogonadism. He presents to the emergency department symptoms as noted above. Workup in the emergency department included a CT scan of head without contrast which was negative. MRI of the brain with and without contrast was negative also. COVID/flu/RSV testing was negative. Patient was given normal saline 1 L IV boluses x 2, meclizine 25 mg p.o., Zofran 4 mg IV with mild improvement in symptoms. He was referred to [facility] medicine for admission at this time Admission Exam Per Admitting Provider The patient is awake, alert and oriented 3, well developed and well nourished, normocephalic and atraumatic, lying in bed and in no acute distress. HEENT--PERRL, EOMI, mucous membranes and oropharynx dry. Neck--supple. No JVD. No bruits. Thyroid normal, trachea midline, no adenopathy. Heart--normal S1 and S2. No murmurs, rubs or gallops. Lungs--clear bilaterally, no respiratory distress, no accessory muscle use. Abdomen--normal bowel sounds and soft. Nontender. Nondistended, no hernias or masses, no organomegaly. Extremities--no cyanosis or clubbing. No edema. Dermatologic--normal skin turgor, normal color, no abnormal lymph nodes, no rash. Neurologic--cranial nerves II through XII grossly intact. Rheumatologic--normal range of motion. Psychiatric--normal affect. Principal Diagnosis Benign positional vertigo Ambulatory dysfunction Discharge Exam General: Awake, conversant Heart: S1, S2/regular rate and rhythm, no murmur rubs or gallops Lungs: Clear to auscultation bilaterally. Normal effort Abdomen: Soft/nontender/nondistended. No hepatosplenomegaly Extremities: No clubbing/cyanosis. No edema Behavior: Appropriate, cooperative Discharge Data Allergies Allergy/AdvReac Type Severity Reaction Status Date / Time pollen extracts Allergy Intermediate CONGESTION Verified 10/23/23 19:40 Penicillins Allergy Unknown UNKNOWN Verified 10/23/23 19:40 WITH INJECTION A CHILD Consultations 10/23/23 21:39 ED Decision to Admit Stat Ordered Studies 10/23/23 18:10 CT head/brain wo con Stat 10/23/23 21:12 MRI Brain [MR brain wo/w con] Stat Hospital Course (1) Dizziness: (2) Intractable nausea and vomiting: (3) Enlarged prostate with lower urinary tract symptoms (LUTS): (4) Hypertension: Plan Benign positional vertigo/ambulatory dysfunction- Associated with intractable nausea and vomiting CT scan of the head without contrast is negative MRI of brain with and without contrast is negative Consulted physical therapy, underwent maneuvers. Feeling much better today. Gave him a prescription for outpatient physical therapy Ordered meclizine to be taken as needed Patient is able to walk today without much difficulty. He wishes to go home today and is stable Hypertension- Continue metoprolol succinate and aspirin Total Time Total Time Spent Total Time Spent (In Minutes): 35 Discharge Plan Discharge Items Patient Disposition: Home - Self-Care Reason For Visit: DEHYDRATION, N/V, IMBALANCE, DIZZINESS Discharge Diagnosis: Benign positional vertigo Ambulatory dysfunction Activity: Resume your previous activity Non-emergency contact: Primary Care Provider Call non-emergency contact if: you have any medication questions and your symptoms worsen Follow-up/Referrals: Edilberto Buckner [Primary Care Provider] - Diet: Heart Healthy Addtl Attending Provider Instructions: Advised to follow-up with PCP in 1 week Pending Studies at Discharge: No Stand-Alone Forms: My [employer], Work/School Release Medications and DC Order Prescriptions: New meclizine 25 mg Tablet 25 mg PO Q6H PRN (Reason: dizziness) Qty: 10 0RF Continued tadalafil 5 mg tablet 5 mg PO DIRECTED PRN (Reason: Sexual Activity) hydrocortisone [Procto-Med HC] 2.5 % cream with perineal applicator 1 applic [place] BID PRN (Reason: Hemorrhoids) atorvastatin 40 mg tablet 40 mg PO DAILY diclofenac sodium 75 mg tablet,delayed release (DR/EC) 75 mg PO BID metoprolol succinate 25 mg tablet extended release 24 hr 25 mg PO DAILY Discharge Orders: Discharge Order (Routine); Ordered 10/25/23 Ordered By: Nuzhat White Admission Data Admit Date/Time: 10/24/23 16:20 Attending Provider: Nuzhat White Admit Provider: Feliciano You Primary Care Provider: Edilberto Buckner Other Providers: Feliciano You Other Interventions: Discharge Summary Assessment (RN) Last Done: 10/25/23 11:16 Coding Level of Care Code 85712 INP/OBS DISCH >30 MIN Diagnoses Dizziness R42 Intractable nausea and vomiting R11.2 Enlarged prostate with lower urinary tract symptoms (LUTS) N40.1 Hypertension I10
--- NOTE | 2023-10-26 21:28 | Electrocardiogram Report ---
Test Reason : Blood Pressure : / mmHG Vent. Rate : 067 BPM Atrial Rate : 067 BPM P-R Int : 162 ms QRS Dur : 094 ms QT Int : 384 ms P-R-T Axes : 046 031 028 degrees QTc Int : 405 ms Normal sinus rhythm Nonspecific T wave abnormality Abnormal ECG When compared with ECG of 27-DEC-2016 12:14, No significant change was found Confirmed by Yandel Jean ([id number]) on 10/26/2023 9:27:50 PM Referred By: REFERRED SELF Confirmed By:Yandel Jean
== END 2023-10-25 11:49 | disposition home or self-care (01) | DRG 149 ==
LOC: 4W 14:50 → ED 14:50 → 4W 22:58